=== PATIENT | female | born 1990 | race Caucasian/White ===

== ENCOUNTER 2021-09-20 10:55 | Outpatient (CLI) | payer OTHER | END 2021-09-20 11:46 | disposition home or self-care (01) | LOC: NST 10:55 | PROVIDERS: ATTEND Obstetrics & Gynecology Maternal & Fetal Medicine | DX: Z34.83 Encounter for supervision of other normal pregnancy, third trimester (principal) ==

== ENCOUNTER 2021-10-11 09:25 | Outpatient (CLI) | payer OTHER | END 2021-10-11 10:16 | disposition home or self-care (01) | LOC: NST 09:25 | PROVIDERS: ATTEND Obstetrics & Gynecology | DX: Z34.83 Encounter for supervision of other normal pregnancy, third trimester (principal) ==

== ENCOUNTER 2021-10-18 10:05 | Outpatient (CLI) | payer OTHER | END 2021-10-18 11:11 | disposition home or self-care (01) | LOC: NST 10:05 | PROVIDERS: ATTEND Obstetrics & Gynecology Maternal & Fetal Medicine | DX: Z34.83 Encounter for supervision of other normal pregnancy, third trimester (principal) ==

== ENCOUNTER 2021-10-25 09:56 | Outpatient (CLI) | payer OTHER | END 2021-10-25 10:41 | disposition home or self-care (01) | LOC: NST 09:56 | PROVIDERS: ATTEND Obstetrics & Gynecology Maternal & Fetal Medicine | DX: Z34.83 Encounter for supervision of other normal pregnancy, third trimester (principal) ==

== ENCOUNTER 2021-11-01 09:48 | Outpatient (CLI) | payer OTHER | END 2021-11-01 10:33 | disposition home or self-care (01) | LOC: NST 09:48 | PROVIDERS: ATTEND Obstetrics & Gynecology Maternal & Fetal Medicine | DX: Z34.83 Encounter for supervision of other normal pregnancy, third trimester (principal) ==

== ENCOUNTER 2021-11-08 10:03 | Outpatient (CLI) | payer OTHER | END 2021-11-08 10:41 | disposition critical access hospital, planned readmission (94) | LOC: NST 10:03 | PROVIDERS: ATTEND Obstetrics & Gynecology Maternal & Fetal Medicine | DX: Z34.83 Encounter for supervision of other normal pregnancy, third trimester (principal) ==

== ENCOUNTER 2021-11-09 12:33 | Inpatient (IN) | payer OTHER ==
[~2021-11-09] VITALS: Ht 149.9 cm; Wt 2.3 kg
[2021-11-10] MEDS ORDERED: IRON325 MG PO (11:58)
[2021-11-10] MEDS ORDERED: COMPLETE NATAL1 EACH PO (11:58)
[2021-11-13] MEDS ORDERED: KETO10TA2 PO ×2 (07:48)
[2021-11-13] MEDS ORDERED: OXYC1TAB9 PO ×2 (07:48)
== END 2021-11-13 12:28 | DRG 788 ==
LOC: OB/GYN 11-10 10:45 → O/R 11-10 11:24 → OB/GYN 11-10 19:26
PROVIDERS: ADMIT Obstetrics & Gynecology Maternal & Fetal Medicine; ATTEND Obstetrics & Gynecology Maternal & Fetal Medicine
PROC: 4A1HXCZ Monitoring of Products of Conception, Cardiac Rate, External Approach (ICD-10-PCS; 2021-11-10)
PROC: 10D00Z1 Extraction of Products of Conception, Low, Open Approach (ICD-10-PCS; principal; 2021-11-10 10:45)
DX: O32.1XX2 Maternal care for breech presentation, fetus 2 (principal); O30.043 Twin pregnancy, dichorionic/diamniotic, third trimester; Z3A.37 37 weeks gestation of pregnancy; Z37.2 Twins, both liveborn; Z20.822 Contact with and (suspected) exposure to COVID-19